=== PATIENT | male | born 1980 | race Caucasian/White ===

== ENCOUNTER 2023-03-13 07:51 | Outpatient (CLI) | payer BC | END 2023-03-13 07:52 | disposition home or self-care (01) | LOC: NM 07:51 | PROVIDERS: ATTEND Internal Medicine Endocrinology, Diabetes & Metabolism | DX: E05.00 Thyrotoxicosis with diffuse goiter without thyrotoxic crisis or storm (principal) | CPT/HCPCS: 78014; A9516 ==